=== PATIENT | female | born 2000 | race Caucasian/White ===

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

== ENCOUNTER 2019-01-02 12:35 | Outpatient (CLI) | payer OTHER ==
[~2019-01-02] VITALS: Ht 162.6 cm; Wt 64.3 kg
[~2019-01-02 12:35] MED LIST: BALSALAZIDE DI750 MG PO; BUSPAR10 MG PO; CELEXA 20MG20 MG/TAB PO; ENTYVIO IV; PRIL40 PO
[2019-01-02 13:00] VITALS: BP 101/62; PULSE 56; TEMP 98
[2019-01-02 13:05] LABS: ALANINE AMINOTRANSFERASE < 6 U/L (9-52); ALBUMIN 4.7 gm/dL (3.5-5.0); ALKALINE PHOSPHATASE 56 U/L (50-136); AST,SGOT 30 U/L (15-37)
[2019-01-02 13:08] LABS: BASO # 0.1 (0.0-0.2); EOS # 0.3 (0.0-0.7); EOS % 4.2 % (0-4.0); GRAN # 3.1 (1.4-6.5); GRAN % 50.2 % (42.2-75.2); HEMOGLOBIN 12.1 g/dl (12.0-15.0); LYMPH # 2.3 (1.2-3.4); MEAN CELL VOLUME 95 fl (80.0-95.0); MEAN CORPUSCULAR HEMOGLOBIN 31 pg (26.0-32.0); MEAN CORPUSCULAR HGB CONC 33 g/dl (33.0-37.0); MEAN PLATELET VOLUME 9.5 fl (7.4-10.4); MONO # 0.5 (0.1-0.6); MONO % 7.4 % (1.7-9.3); PLATELET COUNT 314 K/mm3 (130-400); RED BLOOD COUNT 3.87 M/mm3 (4.10-5.30); REDCELL DISTRIBUTION WIDTH-CV 12.9 % (11.5-14.5)
[2019-01-02 13:11] LABS: HEMATOCRIT 36.6 % (35.0-45.0)
[2019-01-02 13:12] LABS: BILIRUBIN UNCONJUGATED 0.8 mg/dL (0.0-1.1); BILIRUBIN,DIRECT 0.1 mg/dL (0.0-0.4); BILIRUBIN,TOTAL 0.9 mg/dL (0.0-1.0)
[2019-01-02 13:28] LABS: ERYTHROCYTE SEDIMENTATION RATE 1 mm/hr (0-20)
[2019-01-02 13:36] LABS: THYROID STIMULATING HORMONE 0.297 uIU/mL (0.465-4.680)
[2019-01-02 14:53] VITALS: BP 107/66; PULSE 54; TEMP 98
== END 2019-01-02 14:55 | disposition home or self-care (01) ==
LOC: EUO 12:35
PROVIDERS: Family Medicine
DX: K51.90 Ulcerative colitis, unspecified, without complications (principal); F41.9 Anxiety disorder, unspecified; Z79.899 Other long term (current) drug therapy
CPT/HCPCS: J3380; J7050

== ENCOUNTER → 2019-02-27 | Outpatient (CLI) | payer OTHER ==
[~2019-02-27] VITALS: Ht 162.6 cm; Wt 65.0 kg
[2019-02-27 12:41] VITALS: BP 117/66; PULSE 94; TEMP 97.6
[2019-02-27 12:59] LABS: BASO # 0.1 (0.0-0.2); BASO % 0.9 % (0.0-2.0); EOS # 0.3 (0.0-0.7); EOS % 4.1 % (0-4.0); GRAN # 4.1 (1.4-6.5); GRAN % 58.7 % (42.2-75.2); HEMATOCRIT 37.7 % (35.0-45.0); HEMOGLOBIN 12.3 g/dl (12.0-15.0); LYMPH % 27.8 % (20.0-51.0); MEAN CELL VOLUME 95 fl (80.0-95.0); MEAN CORPUSCULAR HEMOGLOBIN 31 pg (26.0-32.0); MEAN CORPUSCULAR HGB CONC 33 g/dl (33.0-37.0); MEAN PLATELET VOLUME 9.6 fl (7.4-10.4); MONO # 0.6 (0.1-0.6); MONO % 8.4 % (1.7-9.3); PLATELET COUNT 355 K/mm3 (130-400); RED BLOOD COUNT 3.97 M/mm3 (4.10-5.30); REDCELL DISTRIBUTION WIDTH-CV 12.9 % (11.5-14.5)
[2019-02-27 13:10] LABS: ALANINE AMINOTRANSFERASE 15 U/L (9-52); ALBUMIN 4.4 gm/dL (3.5-5.0); ALKALINE PHOSPHATASE 54 U/L (50-136); AST,SGOT 21 U/L (15-37); TOTAL PROTEIN 7.6 gm/dL (6.4-8.2)
[2019-02-27 13:11] LABS: C-REACTIVE PROTEIN < 0.5 mg/dL (0.0-0.9)
[2019-02-27 13:27] LABS: ERYTHROCYTE SEDIMENTATION RATE 8 mm/hr (0-20)
[2019-02-27 13:37] LABS: BILIRUBIN UNCONJUGATED 0.6 mg/dL (0.0-1.1); BILIRUBIN,DIRECT 0.1 mg/dL (0.0-0.4); BILIRUBIN,TOTAL 0.7 mg/dL (0.0-1.0)
[2019-02-27 14:47] VITALS: BP 117/73; PULSE 81; TEMP 98.1
--- NOTE | 2019-02-27 14:54 | NUR ---
IV TO LEFT AC DISCONTINUED. PATIENT ABLE TO AMBULATE TO EXIT W/ FRIEND WITHOUT DIFFICULTY.
== END ==
LOC: EUO 12:30
PROVIDERS: Family Medicine
DX: K51.90 Ulcerative colitis, unspecified, without complications (principal); Z79.899 Other long term (current) drug therapy
CPT/HCPCS: J3380; J7050

== ENCOUNTER 2019-04-24 12:23 | Outpatient (CLI) | payer OTHER ==
[~2019-04-24] VITALS: Ht 162.6 cm; Wt 68.0 kg
[2019-04-24 13:00] VITALS: BP 126/81; PULSE 78; TEMP 97.6
[2019-04-24 13:16] LABS: BASO # 0.1 (0.0-0.2); BASO % 1.1 % (0.0-2.0); EOS # 0.2 (0.0-0.7); EOS % 2.4 % (0-4.0); GRAN # 3.4 (1.4-6.5); GRAN % 52.5 % (42.2-75.2); HEMOGLOBIN 12.9 g/dl (12.0-15.0); LYMPH # 2.3 (1.2-3.4); LYMPH % 35.1 % (20.0-51.0); MEAN CELL VOLUME 97 fl (80.0-95.0); MEAN CORPUSCULAR HEMOGLOBIN 31 pg (26.0-32.0); MEAN CORPUSCULAR HGB CONC 32 g/dl (33.0-37.0); MONO # 0.6 (0.1-0.6); MONO % 8.7 % (1.7-9.3); PLATELET COUNT 360 K/mm3 (130-400); RED BLOOD COUNT 4.12 M/mm3 (4.10-5.30); REDCELL DISTRIBUTION WIDTH-CV 12.9 % (11.5-14.5)
[2019-04-24 13:18] LABS: BILIRUBIN UNCONJUGATED 0.5 mg/dL (0.0-1.1)
[2019-04-24 13:21] LABS: ALANINE AMINOTRANSFERASE 16 U/L (9-52); ALBUMIN 4.7 gm/dL (3.5-5.0); ALKALINE PHOSPHATASE 58 U/L (50-136); AST,SGOT 23 U/L (15-37); BILIRUBIN,TOTAL 0.7 mg/dL (0.0-1.0)
[2019-04-24 13:23] LABS: C-REACTIVE PROTEIN < 0.5 mg/dL (0.0-0.9)
[2019-04-24 13:42] LABS: ERYTHROCYTE SEDIMENTATION RATE 4 mm/hr (0-20)
[2019-04-24 15:24] VITALS: BP 121/78; PULSE 88; TEMP 97.6
== END 2019-04-24 15:26 | disposition home or self-care (01) ==
LOC: EUO 12:23
PROVIDERS: Family Medicine
DX: K51.90 Ulcerative colitis, unspecified, without complications (principal); Z79.899 Other long term (current) drug therapy
CPT/HCPCS: J3380; J7050

== ENCOUNTER 2019-08-14 13:18 | Outpatient (CLI) | payer OTHER ==
[~2019-08-14] VITALS: Ht 162.6 cm; Wt 70.4 kg
[2019-08-14 14:09] LABS: BASO # 0.1 (0.0-0.2); BASO % 1.2 % (0.0-2.0); EOS # 0.2 (0.0-0.7); EOS % 3.7 % (0-4.0); GRAN # 3.4 (1.4-6.5); GRAN % 58.1 % (42.2-75.2); HEMATOCRIT 39.8 % (35.0-45.0); HEMOGLOBIN 13.1 g/dl (12.0-15.0); LYMPH # 1.8 (1.2-3.4); LYMPH % 29.7 % (20.0-51.0); MEAN CELL VOLUME 95 fl (80.0-95.0); MEAN CORPUSCULAR HEMOGLOBIN 31 pg (26.0-32.0); MEAN CORPUSCULAR HGB CONC 33 g/dl (33.0-37.0); MEAN PLATELET VOLUME 9.7 fl (7.4-10.4); MONO # 0.4 (0.1-0.6); MONO % 7.1 % (1.7-9.3); PLATELET COUNT 352 K/mm3 (130-400); RED BLOOD COUNT 4.19 M/mm3 (4.10-5.30); REDCELL DISTRIBUTION WIDTH-CV 12.6 % (11.5-14.5)
[2019-08-14 14:19] LABS: ALANINE AMINOTRANSFERASE 14 U/L (4-34); ALBUMIN 4.6 gm/dL (3.5-5.0); ALKALINE PHOSPHATASE 64 U/L (50-136); AST,SGOT 21 U/L (15-37); BILIRUBIN UNCONJUGATED 0.6 mg/dL (0.0-1.1); BILIRUBIN,DIRECT 0.1 mg/dL (0.0-0.4); BILIRUBIN,TOTAL 0.7 mg/dL (0.0-1.0); TOTAL PROTEIN 8.1 gm/dL (6.4-8.2)
[2019-08-14 14:28] LABS: ERYTHROCYTE SEDIMENTATION RATE 2 mm/hr (0-20)
[2019-08-14 14:31] LABS: C-REACTIVE PROTEIN < 0.5 mg/dL (0.0-0.9)
[2019-08-14 15:03] VITALS: BP 119/66; PULSE 62; TEMP 97.9
== END 2019-08-14 15:40 | disposition home or self-care (01) ==
LOC: EUO 13:18
PROVIDERS: Family Medicine
DX: K51.90 Ulcerative colitis, unspecified, without complications (principal); Z79.899 Other long term (current) drug therapy
CPT/HCPCS: J3380; J7050

== ENCOUNTER 2019-10-09 13:09 | Outpatient (CLI) | payer OTHER ==
[~2019-10-09] VITALS: Ht 162.6 cm; Wt 70.1 kg
[2019-10-09 14:29] LABS: BASO # 0.1 (0.0-0.2); BASO % 0.8 % (0.0-2.0); EOS # 0.3 (0.0-0.7); EOS % 4.4 % (0-4.0); GRAN # 3.4 (1.4-6.5); GRAN % 57.3 % (42.2-75.2); HEMATOCRIT 39.3 % (35.0-45.0); HEMOGLOBIN 12.9 g/dl (12.0-15.0); LYMPH # 1.8 (1.2-3.4); LYMPH % 29.8 % (20.0-51.0); MEAN CELL VOLUME 95 fl (80.0-95.0); MEAN CORPUSCULAR HEMOGLOBIN 31 pg (26.0-32.0); MEAN CORPUSCULAR HGB CONC 33 g/dl (33.0-37.0); MEAN PLATELET VOLUME 9.4 fl (7.4-10.4); MONO # 0.5 (0.1-0.6); MONO % 7.5 % (1.7-9.3); PLATELET COUNT 355 K/mm3 (130-400); RED BLOOD COUNT 4.13 M/mm3 (4.10-5.30); REDCELL DISTRIBUTION WIDTH-CV 12.6 % (11.5-14.5)
[2019-10-09 14:49] LABS: ALANINE AMINOTRANSFERASE 11 U/L (4-34); ALBUMIN 4.4 gm/dL (3.5-5.0); ALKALINE PHOSPHATASE 59 U/L (50-136); AST,SGOT 20 U/L (15-37); TOTAL PROTEIN 7.8 gm/dL (6.4-8.2)
[2019-10-09 14:51] LABS: C-REACTIVE PROTEIN < 0.5 mg/dL (0.0-0.9)
[2019-10-09 15:00] LABS: BILIRUBIN UNCONJUGATED 0.7 mg/dL (0.0-1.1); BILIRUBIN,DIRECT 0.1 mg/dL (0.0-0.4); BILIRUBIN,TOTAL 0.8 mg/dL (0.0-1.0)
[2019-10-09 15:15] VITALS: BP 116/72; PULSE 62; TEMP 98.4
[2019-10-09 15:24] LABS: ERYTHROCYTE SEDIMENTATION RATE 1 mm/hr (0-20)
== END 2019-10-09 16:10 | disposition home or self-care (01) ==
LOC: EUO 13:09
PROVIDERS: Family Medicine
DX: K51.90 Ulcerative colitis, unspecified, without complications (principal); Z79.899 Other long term (current) drug therapy
CPT/HCPCS: J3380; J7050

== ENCOUNTER 2019-10-30 18:39 | Emergency (ER) | payer OTHER ==
[~2019-10-30] VITALS: Ht 165.1 cm; Wt 63.6 kg
[2019-10-30 18:52] VITALS: BP 128/81; TEMP 99.3
[2019-10-30 19:52] VITALS: PULSE 84
== END 2019-10-30 19:52 | disposition home or self-care (01) ==
LOC: COL.ER 18:39
DX: S93.502A Unspecified sprain of left great toe, initial encounter (principal); F41.9 Anxiety disorder, unspecified; W22.8XXA Striking against or struck by other objects, initial encounter

== ENCOUNTER 2019-12-04 13:52 | Outpatient (CLI) | payer OTHER ==
[~2019-12-04] VITALS: Ht 165.1 cm; Wt 69.3 kg
[2019-12-04 14:12] LABS: BASO # 0.1 (0.0-0.2); BASO % 1.4 % (0.0-2.0); EOS # 0.4 (0.0-0.7); EOS % 4.8 % (0-4.0); GRAN # 3.7 (1.4-6.5); GRAN % 47.6 % (42.2-75.2); HEMATOCRIT 41.9 % (35.0-45.0); LYMPH # 2.9 (1.2-3.4); LYMPH % 38.2 % (20.0-51.0); MEAN CELL VOLUME 95 fl (80.0-95.0); MEAN CORPUSCULAR HEMOGLOBIN 32 pg (26.0-32.0); MEAN CORPUSCULAR HGB CONC 33 g/dl (33.0-37.0); MEAN PLATELET VOLUME 9.4 fl (7.4-10.4); MONO # 0.6 (0.1-0.6); MONO % 7.9 % (1.7-9.3); PLATELET COUNT 431 K/mm3 (130-400); RED BLOOD COUNT 4.43 M/mm3 (4.10-5.30)
[2019-12-04 14:24] LABS: ALBUMIN 4.9 gm/dL (3.5-5.0); BILIRUBIN,TOTAL 0.9 mg/dL (0.0-1.0); CALCIUM 9.4 mg/dL (8.4-10.2); CREATININE, serum 0.89 (0.52-1.25); POTASSIUM 4.1 mmol/L (3.4-5.0); TOTAL PROTEIN 8.3 gm/dL (6.4-8.2)
[2019-12-04 15:10] VITALS: BP 131/82; PULSE 85; TEMP 98.5
[2019-12-04 15:45] VITALS: BP 124/77; PULSE 89; TEMP 98.5
== END 2019-12-04 15:47 | disposition home or self-care (01) ==
LOC: EUO 13:52
PROVIDERS: Family Medicine
DX: K51.90 Ulcerative colitis, unspecified, without complications (principal)
CPT/HCPCS: J1200; J3380; J7050

== ENCOUNTER 2020-01-29 08:54 | Outpatient (CLI) | payer OTHER ==
[~2020-01-29] VITALS: Ht 165.1 cm; Wt 68.8 kg
[2020-01-29 09:33] LABS: BASO # 0.1 (0.0-0.2); BASO % 1.6 % (0.0-2.0); EOS # 0.3 (0.0-0.7); EOS % 4.5 % (0-4.0); GRAN # 2.9 (1.4-6.5); GRAN % 52.7 % (42.2-75.2); HEMATOCRIT 41.2 % (35.0-45.0); HEMOGLOBIN 13.7 g/dl (12.0-15.0); LYMPH # 1.8 (1.2-3.4); LYMPH % 33.2 % (20.0-51.0); MEAN CELL VOLUME 96 fl (80.0-95.0); MEAN CORPUSCULAR HEMOGLOBIN 32 pg (26.0-32.0); MEAN CORPUSCULAR HGB CONC 33 g/dl (33.0-37.0); MEAN PLATELET VOLUME 9.5 fl (7.4-10.4); MONO # 0.4 (0.1-0.6); MONO % 7.8 % (1.7-9.3); PLATELET COUNT 435 K/mm3 (130-400); RED BLOOD COUNT 4.31 M/mm3 (4.10-5.30); REDCELL DISTRIBUTION WIDTH-CV 12.5 % (11.5-14.5)
[2020-01-29 09:43] LABS: BILIRUBIN,TOTAL 1.5 mg/dL (0.0-1.0); CALCIUM 9.6 mg/dL (8.4-10.2); CREATININE, serum 0.94 (0.52-1.25); TOTAL PROTEIN 8.7 gm/dL (6.4-8.2)
[2020-01-29 10:23] LABS: THYROID STIMULATING HORMONE 1.1 uIU/mL (0.465-4.680)
[2020-01-29 11:01] VITALS: BP 117/58; PULSE 70; TEMP 98.4
[2020-01-30 20:12] LABS: T3 TOTAL 91 ng/dL (58-159)
== END 2020-01-29 11:43 | disposition home or self-care (01) ==
LOC: EUO 08:54
PROVIDERS: Family Medicine
DX: K51.90 Ulcerative colitis, unspecified, without complications (principal); Z79.899 Other long term (current) drug therapy
CPT/HCPCS: J3380; J7050

== ENCOUNTER 2020-03-25 12:52 | Outpatient (CLI) | payer OTHER ==
[~2020-03-25] VITALS: Ht 165.1 cm; Wt 69.2 kg
[2020-03-25 13:38] LABS: BASO # 0.1 (0.0-0.2); BASO % 1.2 % (0.0-2.0); EOS # 0.4 (0.0-0.7); EOS % 6.1 % (0-4.0); GRAN % 59.6 % (42.2-75.2); HEMATOCRIT 38.5 % (35.0-45.0); HEMOGLOBIN 12.9 g/dl (12.0-15.0); LYMPH # 1.8 (1.2-3.4); LYMPH % 26.3 % (20.0-51.0); MEAN CELL VOLUME 95 fl (80.0-95.0); MEAN CORPUSCULAR HEMOGLOBIN 32 pg (26.0-32.0); MEAN CORPUSCULAR HGB CONC 34 g/dl (33.0-37.0); MEAN PLATELET VOLUME 9.4 fl (7.4-10.4); MONO # 0.5 (0.1-0.6); MONO % 6.7 % (1.7-9.3); PLATELET COUNT 412 K/mm3 (130-400); RED BLOOD COUNT 4.04 M/mm3 (4.10-5.30); REDCELL DISTRIBUTION WIDTH-CV 12.4 % (11.5-14.5)
[2020-03-25 14:08] LABS: ALBUMIN 4.4 gm/dL (3.5-5.0); BILIRUBIN,TOTAL 0.8 mg/dL (0.0-1.0); CALCIUM 9.5 mg/dL (8.4-10.2); CREATININE, serum 0.84 (0.52-1.25); POTASSIUM 4.1 mmol/L (3.4-5.0); TOTAL PROTEIN 7.5 gm/dL (6.4-8.2)
[2020-03-25 15:01] VITALS: BP 117/76; PULSE 68; TEMP 99.1
--- NOTE | 2020-03-25 15:40 | NUR ---
Pt tolerated infusion well, vital signs were monitored throughout infusion, though were lost as monitor was turned off. Vitals remained stable, pt remained pwd with no complaints throughout infusion. amb to exit with steady gait.
== END 2020-03-25 16:00 | disposition home or self-care (01) ==
LOC: EUO 12:52
PROVIDERS: Family Medicine
DX: K51.90 Ulcerative colitis, unspecified, without complications (principal)
CPT/HCPCS: J3380; J7050

== ENCOUNTER 2020-05-20 12:52 | Outpatient (CLI) | payer OTHER ==
[~2020-05-20] VITALS: Ht 165.1 cm; Wt 74.0 kg
[2020-05-20 13:55] LABS: BASO # 0.1 (0.0-0.2); BASO % 1.5 % (0.0-2.0); EOS # 0.3 (0.0-0.7); EOS % 5.2 % (0-4.0); GRAN # 2.9 (1.4-6.5); GRAN % 48.2 % (42.2-75.2); HEMATOCRIT 37.5 % (35.0-45.0); HEMOGLOBIN 12.3 g/dl (12.0-15.0); LYMPH # 2.1 (1.2-3.4); LYMPH % 35.6 % (20.0-51.0); MEAN CELL VOLUME 97 fl (80.0-95.0); MEAN CORPUSCULAR HEMOGLOBIN 32 pg (26.0-32.0); MEAN CORPUSCULAR HGB CONC 33 g/dl (33.0-37.0); MEAN PLATELET VOLUME 9.5 fl (7.4-10.4); MONO # 0.6 (0.1-0.6); MONO % 9.2 % (1.7-9.3); PLATELET COUNT 368 K/mm3 (130-400); RED BLOOD COUNT 3.86 M/mm3 (4.10-5.30); REDCELL DISTRIBUTION WIDTH-CV 12.5 % (11.5-14.5)
[2020-05-20 14:09] LABS: ALBUMIN 4.1 gm/dL (3.5-5.0); BILIRUBIN,TOTAL 0.5 mg/dL (0.0-1.0); CALCIUM 9.2 mg/dL (8.4-10.2); CREATININE, serum 0.81 (0.52-1.25); POTASSIUM 4.5 mmol/L (3.4-5.0)
[2020-05-20 15:40] VITALS: BP 112/71; PULSE 60; TEMP 98.5
[2020-05-20 16:13] VITALS: BP 115/70; PULSE 66; TEMP 98.5
== END 2020-05-20 16:14 | disposition home or self-care (01) ==
LOC: EUO
PROVIDERS: Internal Medicine Gastroenterology
DX: K51.90 Ulcerative colitis, unspecified, without complications (principal); Z79.899 Other long term (current) drug therapy
CPT/HCPCS: J3380; J7050

== ENCOUNTER 2020-07-15 14:01 | Outpatient (CLI) | payer OTHER ==
[2020-07-15 14:36] LABS: BASO # 0.1 (0.0-0.2); BASO % 1.2 % (0.0-2.0); EOS # 0.5 (0.0-0.7); GRAN # 3.1 (1.4-6.5); GRAN % 53.2 % (42.2-75.2); HEMATOCRIT 38.5 % (35.0-45.0); HEMOGLOBIN 12.8 g/dl (12.0-15.0); LYMPH # 1.8 (1.2-3.4); LYMPH % 30.8 % (20.0-51.0); MEAN CELL VOLUME 94 fl (80.0-95.0); MEAN CORPUSCULAR HEMOGLOBIN 31 pg (26.0-32.0); MEAN CORPUSCULAR HGB CONC 33 g/dl (33.0-37.0); MEAN PLATELET VOLUME 9.5 fl (7.4-10.4); MONO # 0.4 (0.1-0.6); MONO % 6.6 % (1.7-9.3); PLATELET COUNT 366 K/mm3 (130-400); RED BLOOD COUNT 4.09 M/mm3 (4.10-5.30); REDCELL DISTRIBUTION WIDTH-CV 12.5 % (11.5-14.5)
[2020-07-15 14:46] LABS: ALBUMIN 4.6 gm/dL (3.5-5.0); BILIRUBIN,TOTAL 0.7 mg/dL (0.0-1.0); CALCIUM 9.4 mg/dL (8.4-10.2); CREATININE, serum 0.63 (0.52-1.25); POTASSIUM 4.1 mmol/L (3.4-5.0); TOTAL PROTEIN 8.3 gm/dL (6.4-8.2)
[2020-07-15 15:24] VITALS: BP 112/71; PULSE 67; TEMP 98.3
== END 2020-07-15 16:02 | disposition home or self-care (01) ==
LOC: EUO 14:01
PROVIDERS: Family Medicine
DX: K51.90 Ulcerative colitis, unspecified, without complications (principal); Z79.899 Other long term (current) drug therapy
CPT/HCPCS: J3380; J7050

== ENCOUNTER 2020-07-29 14:41 | Emergency (ER) | payer OTHER ==
[~2020-07-29] VITALS: Ht 165.1 cm; Wt 68.2 kg
[2020-07-29 15:13] VITALS: BP 107/71; PULSE 103; TEMP 100.3
== END 2020-07-29 15:45 | disposition left against medical advice (07) ==
LOC: COL.ER 14:41
DX: M25.571 Pain in right ankle and joints of right foot (principal); M25.572 Pain in left ankle and joints of left foot; Z88.8 Allergy status to other drugs, medicaments and biological substances; W19.XXXA Unspecified fall, initial encounter

== ENCOUNTER 2020-09-09 12:53 | Outpatient (CLI) | payer OTHER ==
[~2020-09-09] VITALS: Ht 165.1 cm; Wt 65.8 kg
[2020-09-09 13:59] LABS: BASO # 0.1 (0.0-0.2); BASO % 0.9 % (0.0-2.0); EOS # 0.5 (0.0-0.7); EOS % 8.2 % (0-4.0); GRAN % 51.1 % (42.2-75.2); LYMPH # 1.9 (1.2-3.4); MEAN CELL VOLUME 94 fl (80.0-95.0); MEAN CORPUSCULAR HEMOGLOBIN 31 pg (26.0-32.0); MEAN CORPUSCULAR HGB CONC 33 g/dl (33.0-37.0); MEAN PLATELET VOLUME 9.6 fl (7.4-10.4); MONO # 0.4 (0.1-0.6); MONO % 7.5 % (1.7-9.3); PLATELET COUNT 398 K/mm3 (130-400); RED BLOOD COUNT 3.93 M/mm3 (4.10-5.30); REDCELL DISTRIBUTION WIDTH-CV 12.4 % (11.5-14.5)
[2020-09-09 14:04] LABS: HEMATOCRIT 36.8 % (35.0-45.0)
[2020-09-09 14:18] LABS: ALANINE AMINOTRANSFERASE 14 U/L (4-34); ALBUMIN 4.3 gm/dL (3.5-5.0); ALKALINE PHOSPHATASE 46 U/L (50-136); ANION GAP 7 mmol/L (7-16); AST,SGOT 23 U/L (15-37); BILIRUBIN,TOTAL 0.5 mg/dL (0.0-1.0); BLOOD UREA NITROGEN 14 mg/dL (7-17); CALCIUM 9.1 mg/dL (8.4-10.2); CARBON DIOXIDE 26 mmol/L (22-30); CHLORIDE 104 mmol/L (98-107); GLUCOSE 85 mg/dL (74-106); POTASSIUM 4.2 mmol/L (3.4-5.0); SODIUM 137 mmol/L (137-145); TOTAL PROTEIN 7.6 gm/dL (6.4-8.2)
[2020-09-09 14:20] LABS: C-REACTIVE PROTEIN < 0.5 mg/dL (0.0-0.9)
[2020-09-09 14:27] VITALS: BP 110/54; PULSE 52; TEMP 98.1
[2020-09-09 15:05] VITALS: BP 117/72; PULSE 70
[2020-09-09 15:15] VITALS: BP 109/64; PULSE 57
[2020-09-09 15:30] VITALS: BP 115/60; PULSE 55
== END 2020-09-09 15:35 | disposition home or self-care (01) ==
LOC: EUO 12:53
PROVIDERS: Family Medicine
DX: K51.00 Ulcerative (chronic) pancolitis without complications (principal); D84.9 Immunodeficiency, unspecified
CPT/HCPCS: J3380; J7050

== ENCOUNTER → 2020-10-13 | Outpatient (CLI) | payer OTHER ==
[~2020-10-13] MED LIST changes: +COLOCORT100 MG/60 RC
== END ==
LOC: ZCOL.LAB 14:30
DX: K51.00 Ulcerative (chronic) pancolitis without complications (principal)

== ENCOUNTER 2020-11-04 12:47 | Outpatient (CLI) | payer OTHER ==
[~2020-11-04] VITALS: Ht 165.1 cm; Wt 66.0 kg
[~2020-11-04 12:47] MED LIST changes: -COLOCORT100 MG/60 RC
[2020-11-04 13:15] LABS: BASO # 0.1 (0.0-0.2); BASO % 1.4 % (0.0-2.0); EOS # 0.5 (0.0-0.7); EOS % 7.9 % (0-4.0); GRAN # 3.3 (1.4-6.5); GRAN % 50.3 % (42.2-75.2); HEMOGLOBIN 12.2 g/dl (12.0-15.0); LYMPH # 2.1 (1.2-3.4); LYMPH % 32.3 % (20.0-51.0); MEAN CELL VOLUME 92 fl (80.0-95.0); MEAN CORPUSCULAR HEMOGLOBIN 31 pg (26.0-32.0); MEAN CORPUSCULAR HGB CONC 34 g/dl (33.0-37.0); MEAN PLATELET VOLUME 9.8 fl (7.4-10.4); MONO # 0.5 (0.1-0.6); MONO % 7.9 % (1.7-9.3); PLATELET COUNT 391 K/mm3 (130-400); RED BLOOD COUNT 3.94 M/mm3 (4.10-5.30); REDCELL DISTRIBUTION WIDTH-CV 13.3 % (11.5-14.5)
[2020-11-04 13:16] LABS: HEMATOCRIT 36.3 % (35.0-45.0)
[2020-11-04 13:25] LABS: ALBUMIN 4.5 gm/dL (3.5-5.0); BILIRUBIN,TOTAL 0.6 mg/dL (0.0-1.0); CALCIUM 9.3 mg/dL (8.4-10.2); CREATININE, serum 0.68 (0.52-1.25); POTASSIUM 4.1 mmol/L (3.4-5.0); TOTAL PROTEIN 7.9 gm/dL (6.4-8.2)
[2020-11-04 14:00] VITALS: BP 110/71; PULSE 65; TEMP 97.8
[2020-11-04] MEDS ORDERED: COLOCORT100 MG/60 RC (14:04)
[2020-11-04 14:09] VITALS: BP 107/68; PULSE 64
[2020-11-04 14:19] VITALS: BP 113/72; PULSE 68
[2020-11-04 14:29] VITALS: BP 106/69; PULSE 63
== END 2020-11-04 15:03 | disposition home or self-care (01) ==
LOC: EUO 12:47
PROVIDERS: Family Medicine
DX: K51.90 Ulcerative colitis, unspecified, without complications (principal); Z79.899 Other long term (current) drug therapy
CPT/HCPCS: J3380; J7050

== ENCOUNTER 2020-12-22 12:49 | Outpatient (CLI) | payer OTHER ==
[~2020-12-22 12:49] MED LIST changes: +COLOCORT100 MG/60 RC
[2020-12-22 13:20] LABS: BASO # 0.1 K/mm3 (0.0-0.2); EOS # 0.4 K/mm3 (0.0-0.7); EOS % 5.2 % (0-4.0); GRAN # 4.7 K/mm3 (1.4-6.5); GRAN % 61.8 % (42.2-75.2); HEMOGLOBIN 12.3 g/dl (12.5-16.0); LYMPH # 2.1 K/mm3 (1.2-3.4); LYMPH % 27.3 % (20.0-51.0); MEAN CELL VOLUME 92 fl (80.0-100.0); MEAN CORPUSCULAR HEMOGLOBIN 31 pg (27.0-31.0); MEAN CORPUSCULAR HGB CONC 33 g/dl (33.0-37.0); MEAN PLATELET VOLUME 9.4 fl (7.4-10.4); MONO # 0.3 K/mm3 (0.1-0.6); MONO % 4.4 % (1.7-9.3); PLATELET COUNT 409 K/mm3 (130-400); RED BLOOD COUNT 4.01 M/mm3 (4.10-5.30); REDCELL DISTRIBUTION WIDTH-CV 13.2 % (11.5-14.5)
[2020-12-22 13:24] LABS: HEMATOCRIT 36.9 % (37.0-47.0)
[2020-12-22 13:36] LABS: ALBUMIN 4.2 gm/dL (3.5-5.0); BILIRUBIN,TOTAL 0.5 mg/dL (0.2-1.2); CALCIUM 9.9 mg/dL (8.4-10.2); CREATININE, serum 0.82 mg/dL (0.57-1.11); POTASSIUM 3.9 mmol/L (3.5-4.5)
[2020-12-22 13:49] VITALS: BP 112/70; PULSE 85; TEMP 97.6
== END 2020-12-22 15:00 | disposition home or self-care (01) ==
LOC: EUO 12:49
PROVIDERS: Family Medicine
DX: K51.90 Ulcerative colitis, unspecified, without complications (principal); Z79.899 Other long term (current) drug therapy
CPT/HCPCS: J3380; J7050

== ENCOUNTER 2021-02-03 11:57 | Outpatient (CLI) | payer OTHER ==
[2021-02-03 12:32] LABS: BASO # 0.1 K/mm3 (0.0-0.2); BASO % 1.3 % (0.0-2.0); EOS # 0.4 K/mm3 (0.0-0.7); EOS % 6.4 % (0-4.0); GRAN # 3.5 K/mm3 (1.4-6.5); GRAN % 52.4 % (42.2-75.2); HEMATOCRIT 37.1 % (37.0-47.0); HEMOGLOBIN 12.4 g/dl (12.5-16.0); LYMPH # 2.2 K/mm3 (1.2-3.4); LYMPH % 32.6 % (20.0-51.0); MEAN CELL VOLUME 92 fl (80.0-100.0); MEAN CORPUSCULAR HEMOGLOBIN 31 pg (27.0-31.0); MEAN CORPUSCULAR HGB CONC 33 g/dl (33.0-37.0); MEAN PLATELET VOLUME 9.7 fl (7.4-10.4); MONO # 0.5 K/mm3 (0.1-0.6); PLATELET COUNT 394 K/mm3 (130-400); RED BLOOD COUNT 4.02 M/mm3 (4.10-5.30)
[2021-02-03 12:52] LABS: ALANINE AMINOTRANSFERASE < 6 U/L (0-55); ALBUMIN 4.6 gm/dL (3.5-5.0); ALKALINE PHOSPHATASE 50 U/L (40-150); ANION GAP 10 mmol/L (7-16); AST,SGOT 13 U/L (5-34); BILIRUBIN,TOTAL 0.8 mg/dL (0.2-1.2); BLOOD UREA NITROGEN 12 mg/dL (7-19); CALCIUM 9.7 mg/dL (8.4-10.2); CARBON DIOXIDE 24 mmol/L (22-29); CHLORIDE 106 mmol/L (98-107); CREATININE, serum 0.86 mg/dL (0.57-1.11); GLUCOSE 87 mg/dL (70-99); POTASSIUM 3.8 mmol/L (3.5-4.5); SODIUM 140 mmol/L (136-145)
[2021-02-03 13:30] VITALS: BP 129/78; PULSE 60; TEMP 98.5
== END 2021-02-03 14:18 ==
LOC: EUO 11:57
PROVIDERS: Internal Medicine Gastroenterology
DX: K51.90 Ulcerative colitis, unspecified, without complications (principal); Z79.899 Other long term (current) drug therapy
CPT/HCPCS: J3380; J7050

== ENCOUNTER 2021-03-16 09:51 | Outpatient (CLI) | payer OTHER ==
[~2021-03-16] VITALS: Ht 165.1 cm; Wt 66.7 kg
[2021-03-16 10:27] LABS: BASO # 0.1 K/mm3 (0.0-0.2); BASO % 1.4 % (0.0-2.0); EOS # 0.4 K/mm3 (0.0-0.7); GRAN # 2.7 K/mm3 (1.4-6.5); GRAN % 51.9 % (42.2-75.2); HEMOGLOBIN 11.8 g/dl (12.5-16.0); LYMPH # 1.7 K/mm3 (1.2-3.4); LYMPH % 32.1 % (20.0-51.0); MEAN CELL VOLUME 93 fl (80.0-100.0); MEAN CORPUSCULAR HEMOGLOBIN 31 pg (27-31); MEAN CORPUSCULAR HGB CONC 33 g/dl (33.0-37.0); MEAN PLATELET VOLUME 9.6 fl (7.4-10.4); MONO # 0.4 K/mm3 (0.1-0.6); MONO % 7.6 % (1.7-9.3); PLATELET COUNT 357 K/mm3 (130-400); RED BLOOD COUNT 3.79 M/mm3 (4.10-5.30); REDCELL DISTRIBUTION WIDTH-CV 12.7 % (11.5-14.5)
[2021-03-16 10:28] LABS: HEMATOCRIT 35.3 % (37.0-47.0)
[2021-03-16 10:46] VITALS: BP 113/70; PULSE 81; TEMP 98
[2021-03-16 10:47] LABS: ALBUMIN 4.2 gm/dL (3.5-5.0); BILIRUBIN,TOTAL 0.8 mg/dL (0.2-1.2); CREATININE, serum 0.79 mg/dL (0.57-1.11); POTASSIUM 3.9 mmol/L (3.5-4.5); TOTAL PROTEIN 7.2 gm/dL (6.2-8.1)
[2021-03-16 12:10] VITALS: BP 117/71; PULSE 75
== END 2021-03-16 18:42 | disposition home or self-care (01) ==
LOC: EUO 09:51
PROVIDERS: Family Medicine
DX: K51.90 Ulcerative colitis, unspecified, without complications (principal); Z79.899 Other long term (current) drug therapy
CPT/HCPCS: J3380; J7050

== ENCOUNTER 2021-04-28 12:52 | Outpatient (CLI) | payer OTHER ==
[2021-04-28 13:33] LABS: BASO # 0.1 K/mm3 (0.0-0.2); BASO % 1.5 % (0.0-2.0); EOS # 0.4 K/mm3 (0.0-0.7); EOS % 6.9 % (0.0-4.0); GRAN # 3.4 K/mm3 (1.4-6.5); GRAN % 55.4 % (42.2-75.2); HEMOGLOBIN 12.9 g/dl (12.5-16.0); LYMPH # 1.8 K/mm3 (1.2-3.4); LYMPH % 28.7 % (20.0-51.0); MEAN CELL VOLUME 93 fl (80.0-100.0); MEAN CORPUSCULAR HEMOGLOBIN 31 pg (27-31); MEAN CORPUSCULAR HGB CONC 33 g/dl (33.0-37.0); MEAN PLATELET VOLUME 9.7 fl (7.4-10.4); MONO # 0.5 K/mm3 (0.1-0.6); MONO % 7.3 % (1.7-9.3); PLATELET COUNT 382 K/mm3 (130-400); RED BLOOD COUNT 4.19 M/mm3 (4.10-5.30); REDCELL DISTRIBUTION WIDTH-CV 12.3 % (11.5-14.5)
[2021-04-28 13:49] VITALS: BP 125/80; PULSE 88; TEMP 97.7
[2021-04-28 13:52] LABS: ALBUMIN 4.5 gm/dL (3.5-5.0); BILIRUBIN,TOTAL 0.5 mg/dL (0.2-1.2); CALCIUM 9.6 mg/dL (8.4-10.2); CREATININE, serum 0.81 mg/dL (0.57-1.11); POTASSIUM 4.3 mmol/L (3.5-4.5); TOTAL PROTEIN 7.8 gm/dL (6.2-8.1)
--- NOTE | 2021-04-28 14:38 | NUR ---
Pt refused offer of premeds prior to infusion
== END 2021-04-28 16:04 ==
LOC: EUO 12:52
PROVIDERS: Family Medicine
DX: K51.90 Ulcerative colitis, unspecified, without complications (principal)
CPT/HCPCS: J3380; J7050

== ENCOUNTER 2021-06-09 12:45 | Outpatient (CLI) | payer OTHER ==
[~2021-06-09] VITALS: Ht 165.1 cm; Wt 63.2 kg
[2021-06-09 13:43] LABS: BASO # 0.1 K/mm3 (0.0-0.2); BASO % 1.2 % (0.0-2.0); EOS # 0.4 K/mm3 (0.0-0.7); EOS % 7.5 % (0.0-4.0); GRAN # 2.9 K/mm3 (1.4-6.5); GRAN % 49.9 % (42.2-75.2); HEMATOCRIT 42.8 % (37.0-47.0); HEMOGLOBIN 14.3 g/dl (12.5-16.0); LYMPH % 34.2 % (20.0-51.0); MEAN CELL VOLUME 93 fl (80.0-100.0); MEAN CORPUSCULAR HEMOGLOBIN 31 pg (27-31); MEAN CORPUSCULAR HGB CONC 33 g/dl (33.0-37.0); MONO # 0.4 K/mm3 (0.1-0.6); PLATELET COUNT 401 K/mm3 (130-400); RED BLOOD COUNT 4.62 M/mm3 (4.10-5.30); REDCELL DISTRIBUTION WIDTH-CV 12.4 % (11.5-14.5)
[2021-06-09 13:45] LABS: ALBUMIN 4.9 gm/dL (3.5-5.0); BILIRUBIN,TOTAL 0.9 mg/dL (0.2-1.2); CALCIUM 10.2 mg/dL (8.4-10.2); CREATININE, serum 0.95 mg/dL (0.57-1.11); POTASSIUM 3.8 mmol/L (3.5-4.5)
[2021-06-09 14:00] VITALS: BP 117/74; PULSE 81; TEMP 98.5
== END 2021-06-09 15:39 | disposition home or self-care (01) ==
LOC: EUO 12:45
PROVIDERS: Family Medicine
DX: K51.90 Ulcerative colitis, unspecified, without complications (principal)
CPT/HCPCS: J3380; J7050

== ENCOUNTER 2021-07-21 12:53 | Outpatient (CLI) | payer OTHER ==
[~2021-07-21] VITALS: Ht 165.1 cm; Wt 61.6 kg
[2021-07-21 13:11] LABS: BASO # 0.1 K/mm3 (0.0-0.2); BASO % 1.3 % (0.0-2.0); EOS # 0.6 K/mm3 (0.0-0.7); EOS % 9.4 % (0.0-4.0); GRAN # 2.9 K/mm3 (1.4-6.5); GRAN % 47.6 % (42.2-75.2); HEMOGLOBIN 12.2 g/dl (12.5-16.0); LYMPH % 32.7 % (20.0-51.0); MEAN CELL VOLUME 94 fl (80.0-100.0); MEAN CORPUSCULAR HEMOGLOBIN 31 pg (27-31); MEAN CORPUSCULAR HGB CONC 33 g/dl (33.0-37.0); MEAN PLATELET VOLUME 9.7 fl (7.4-10.4); MONO # 0.5 K/mm3 (0.1-0.6); MONO % 8.8 % (1.7-9.3); PLATELET COUNT 365 K/mm3 (130-400); RED BLOOD COUNT 3.91 M/mm3 (4.10-5.30); REDCELL DISTRIBUTION WIDTH-CV 12.9 % (11.5-14.5)
[2021-07-21 13:22] LABS: HEMATOCRIT 36.7 % (37.0-47.0)
[2021-07-21 13:40] LABS: ALBUMIN 4.2 gm/dL (3.5-5.0); BILIRUBIN,TOTAL 0.8 mg/dL (0.2-1.2); CALCIUM 8.6 mg/dL (8.4-10.2); CREATININE, serum 0.87 mg/dL (0.57-1.11); POTASSIUM 3.6 mmol/L (3.5-4.5); TOTAL PROTEIN 7.1 gm/dL (6.2-8.1)
[2021-07-21 14:15] VITALS: BP 123/74; PULSE 63; TEMP 98.4
== END 2021-07-21 15:05 ==
LOC: EUO 12:53
PROVIDERS: Internal Medicine Gastroenterology
DX: K51.90 Ulcerative colitis, unspecified, without complications (principal)
CPT/HCPCS: J3380; J7050

== ENCOUNTER 2021-08-30 10:41 | Outpatient (CLI) | payer OTHER ==
[~2021-08-30] VITALS: Ht 165.1 cm; Wt 61.1 kg
[2021-08-30 11:01] LABS: BASO % 0.7 % (0.0-2.0); EOS # 0.2 K/mm3 (0.0-0.7); EOS % 2.7 % (0.0-4.0); GRAN # 3.5 K/mm3 (1.4-6.5); GRAN % 57.9 % (42.2-75.2); HEMATOCRIT 38.7 % (37.0-47.0); HEMOGLOBIN 12.9 g/dl (12.5-16.0); LYMPH # 1.9 K/mm3 (1.2-3.4); LYMPH % 31.1 % (20.0-51.0); MEAN CELL VOLUME 92 fl (80.0-100.0); MEAN CORPUSCULAR HEMOGLOBIN 31 pg (27-31); MEAN CORPUSCULAR HGB CONC 33 g/dl (33.0-37.0); MEAN PLATELET VOLUME 9.5 fl (7.4-10.4); MONO # 0.4 K/mm3 (0.1-0.6); MONO % 7.4 % (1.7-9.3); PLATELET COUNT 439 K/mm3 (130-400); RED BLOOD COUNT 4.22 M/mm3 (4.10-5.30); REDCELL DISTRIBUTION WIDTH-CV 12.3 % (11.5-14.5)
[2021-08-30 11:21] LABS: ALBUMIN 3.8 gm/dL (3.5-5.0); BILIRUBIN,TOTAL 0.7 mg/dL (0.2-1.2); CALCIUM 9.3 mg/dL (8.4-10.2); CREATININE, serum 0.79 mg/dL (0.57-1.11); POTASSIUM 3.9 mmol/L (3.5-4.5); TOTAL PROTEIN 7.4 gm/dL (6.2-8.1)
[2021-08-30 11:40] LABS: TSH w REFLEX 0.427 uIU/mL (0.350-4.940)
[2021-08-30 11:45] VITALS: BP 117/69; PULSE 62; TEMP 98.8
--- NOTE | 2021-08-30 12:07 | NUR ---
pt declines tylenol and benadryl administration prior to entyvio.
--- NOTE | 2021-08-30 12:30 | NUR ---
Pt reports she will be going to a provider in [facility] for future Entyvio appts. Pt states "I'm going to school there". Pt tolerated infusion without complication.
== END 2021-08-30 13:31 ==
LOC: EUO 10:41
PROVIDERS: Family Medicine; Internal Medicine Gastroenterology
DX: K51.90 Ulcerative colitis, unspecified, without complications (principal)
CPT/HCPCS: J3380; J7050